=== PATIENT | male | born 1960 | race Caucasian/White ===

== ENCOUNTER → 2018-07-20 | Outpatient (CLI) | payer OTHER ==
[~2018-07-20] VITALS: Ht 188 cm; Wt 108.9 kg
[~2018-07-20] MED LIST: CRESTOR10 MG PO
[2018-07-20 08:47] VITALS: BP 131/81
--- NOTE | 2018-07-22 11:12 | CATHLAB ---
[facility] [address] [place] [address] INVASIVE PROCEDURE REPORT Name: TAMANNA SELF Room #: REG [place]#: [id number] Admission: 07/20/18 Attend Phys: Manolo Green Discharge: Date of : 62 Date of Service: 07/22/18 1111 Report #: [id number] THIS REPORT FOR: //name// APPROVED REPORT Study performed: 07/20/2018 09:04:03 Patient Details Patient Status: Out-Patient Room #: The patient is a 58 year-old male Event Personnel Manolo Calero Community Development Specialist, Lukasz Murphy RN, Lukasz Murphy RN, Alison Paiz RTR, HUGO Miller, Juan Rueda Monitor Procedures Performed Left Heart Cath w/or w/o Coronaries [id number] [facility], supervision of conscious sedation Indication Chest pain, Elevated coronary calcium score Procedure Narrative The Right Groin^ was infiltrated with 1% Lidocaine subcutaneous anesthesia. A PINNACLE 5FR Sheath #[id number] sheath was inserted into the RFA^. Coronary angiography was performed using coronary diagnostic catheters. The right coronary system was accessed and visualized with a JR4 catheter. The left coronary system was accessed and visualized with a JL4 catheter. The left ventricle was accessed and visualized with a PIGTAIL catheter. Left ventricular/Aortic Valve gradient assessed via catheter pullback. Left ventriculogram was performed in 30 degree projection. Closure device was deployed with a 6 Fr MYNXGRIP 6/7F #[id number]. There was no hematoma. Intraoperative Conscious Sedation Sedation start time: 10.12 Case end Time: 10.55 Versed 2 mg Fluoro Time: 3.28 minutes Dose: DAP 4951 cGycm2 620 mGy Contrast Type and Amount: Omnipaque 60 ml [facility] [email or web address] [place] [address] INVASIVE PROCEDURE REPORT Name: CLAIRTAMANNA GOSS Room #: REG [facility] [id number] Admission: 07/20/18 Attend Phys: Manolo Green Discharge: Date of : 62 Date of Service: 07/22/18 1111 Report #: [id number] Coronary Angiography The patient's coronary anatomy is right dominant. Diagnostic Cath Left Main Large calibered normal origin and has a proximal 30-40 sent tapering which is eccentric. The vessel then continues on and trifurcates that anterior descending ramus intermedius and left circumflex coronary artery. Only luminal irregularities are noted LAD Moderate caliber type 2 vessel which has proximal irregularities of less than 30%. He gives a first diagonal branch has some moderate proximal lesion reconstitutes itself but does not appear to be flow-limiting. The LAD probably continues on as a small eccentric lesion in the proximal portion of the mid LAD of less than 50%. He continues on irregularities to the apex. It terminates as a bifurcating vessel. Diagonal 1 All caliber vessel with 40-50% proximal lesion which is approximately 10-15 mm in length. Does not appear to impede OCTAVIO flow. Diagonal 2 Small-caliber vessel with luminal irregularities Circumflex Small-caliber vessel which courses in the AV groove posteriorly giving rise to posterior wall Right Coronary Large-caliber dominant vessel of normal origin without significant high-grade lesions noted. Is mild luminal irregularities noted distally R PDA Small caliber vessel without significant stenosis. Irregularities are noted in the lumen but no high-grade flow-limiting lesions present Ramus Large-caliber vessel which takes the place of the circumflex coursing the lateral aspect of the heart giving rise to numerous ranches in its course it is with luminal irregularities but no high-grade lesions noted Left Ventriculography Left Ventriculography was not performed. Hemodynamics The aortic pressure is 130/80 mmHg with a mean of 98 mmHg. The left ventricular pressure is 123/11 mmHg with a mean of mmHg. The left ventricular end diastolic pressure [facility] [address] [place] [address] INVASIVE PROCEDURE REPORT Name: CLAIRTAMANNA GOSS Room #: REG [place]#: [id number] Admission: 07/20/18 Attend Phys: Manolo Green Discharge: Date of : 62 Date of Service: 07/22/18 1111 Report #: [id number] is 26 mmHg. There was no gradient across the aortic valve upon pullback. Pullback from the left ventricle to the aorta revealed no gradient across the aortic valve. PCI Technique Lesion A LAUNCHER 6FR JL4 #[id number] Guide Catheter was used to engage the ostium. A Dandelion Pressure Wire 175 cm [id number] Interventional Guidewire was used to cross the lesion. BALLOON DILATION PRE FFR .96 POST FFR .89 Conclusion 1. Coronary artery disease moderate two-vessel nonobstructive 2. Normal hemodynamics with normal left ventricle end-diastolic pressures Recommendations [facility] Medical Therapy <ELECTRONICALLY SIGNED> By: Manolo Calero MD 07/22/18 1111 1111 1111 Manolo Calero MD /INF
== END | disposition home or self-care (01) ==
LOC: CATH 08:07
DX: I25.10 Atherosclerotic heart disease of native coronary artery without angina pectoris (principal); R07.9 Chest pain, unspecified; E78.5 Hyperlipidemia, unspecified; K21.9 Gastro-esophageal reflux disease without esophagitis; Z98.890 Other specified postprocedural states; Z82.49 Family history of ischemic heart disease and other diseases of the circulatory system; Z79.899 Other long term (current) drug therapy